=== PATIENT | female | born 1970 | race Caucasian/White ===

== ENCOUNTER 2021-04-11 13:32 | Emergency (ER) | payer OTHER ==
[2021-04-11] MEDS ORDERED: CHERRY SYRUP 10 ML UDC PO ONE (14:23)
[2021-04-11] MEDS ORDERED: DEXAMETHASONE 10 MG/ML VIAL PO STA (14:23)
[2021-04-11] MEDS ORDERED: KETOROLAC 60 MG/2 ML VIAL IM STA (14:28)
--- NOTE | 2021-04-11 14:30 | ED Physician Documentation ---
PD HPI BACK PAIN - Stated complaint Stated Complaint: LT SIDE BACK PX - Chief complaint Chief Complaint: Back Pain - History obtained from History obtained from: Patient, Family - History of Present Illness Timing - onset: How many months ago (9) Timing - duration: Months (9) Timing - details: Gradual onset, Still present, Waxing and waning Location: Upper, Mid Quality: Pain, Spasm, Sharp, Similar to prior episodes Associated symptoms: No: Fever, Weakness, Numbness, Incontinent of urine, Unable to urinate, Hematuria, Incontinent of stool Improves with: Rest, Position, Meds Worsened by: Movement Similar symptoms before: No diagnosis, Work up / diagnostics (has included MRI, CT and surgery) Recently seen: Not recently seen - Additional information Additional information: Previous well 50-year-old female has developed some pain in her upper back on the left side that radiates around to the front. She has had extensive work up t o include CT scan of the chest, MRI of the thoracic spine and surgery to a lipoma on the abdomen. There is a finding of a T7 disc bulge. Review of Systems Constitutional: denies: Fever Eyes: denies: Decreased vision Ears: denies: Ear pain Nose: denies: Congestion Throat: denies: Sore throat Cardiac: denies: Chest pain / pressure, Palpitations, Pedal edema, Calf pain Respiratory: denies: Dyspnea, Cough, Wheezing GI: denies: Abdominal Pain, Nausea, Vomiting, Constipation, Diarrhea : denies: Dysuria, Frequency Skin: denies: Rash Musculoskeletal: reports: Back pain. denies: Neck pain, Extremity pain Neurologic: denies: Generalized weakness, Focal weakness, Numbness PD PAST MEDICAL HISTORY - Present Medications Home Medications: Ambulatory Orders Medication Instructions Recorded Confirmed Cyclobenzaprine [Flexeril] 10 mg PO TID PRN #20 tablet 04/11/21 HYDROcod/ACETAM 5/325 [[place] 5/325] 1 - 2 tablet PO Q6H PRN #14 tablet 04/11/21 - Allergies Allergies/Adverse Reactions: Allergies Allergy/AdvReac Type Severity Reaction Status Date / Time No Known Drug Allergies Allergy Verified 04/11/21 13:48 PD ED PE NORMAL - Vitals Vital signs reviewed: Yes (hypertensive ) - General General: Alert and oriented X 3, No acute distress, Well developed/nourished - HEENT HEENT: Atraumatic, PERRL, EOMI - Neck Neck: Supple, no meningeal sign, No bony TTP - Cardiac Cardiac: RRR, No murmur - Respiratory Respiratory: No respiratory distress, Clear bilaterally, Other (no chest wall tenderness. 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, No motor deficit, No sensory deficit, Normal speech Eye Opening: Spontaneous Motor: Obeys Commands Verbal: Oriented GCS Score: 15 - Psych Psych: Normal mood, Normal affect Results - Vitals Vitals: Vital Signs - 24 hr 04/11/21 13:43 Temperature 36.7 C Heart Rate 84 Respiratory 18 Rate Blood Pressure 146/80 H O2 Saturation 100 PD MEDICAL DECISION MAKING - ED course Complexity details: reviewed old records, reviewed results, re-evaluated patient, considered differential, d/w patient ED course: 50-year-old female with 9 months of history of pain from her back that radiates around to the front and is intermittent and currently it is persistent. She has had a work-up to include MRI which does show a T7 disc bulge. She is in the process of getting insurance verification for her procedure of epidural steroid injection.She has taken some muscle relaxant in the past with help she has taken some pain medication periodically in the past with help she is about done with this pain.Here in the emergency department she is administered dexamethasone 10 mg orally she is given 60 mg of Toradol IM and we will place her on a short course of pain medication a muscle relaxant. Departure - Departure Disposition: 01 Home, Self Care Clinical Impression: Thoracic disc disease Condition: Stable Instructions: ED Sciatica Follow-Up: DAMION ALBERTO ARNP [Primary Care Provider] - Prescriptions: Cyclobenzaprine [Flexeril] 10 mg PO TID PRN #20 tablet PRN Reason: Spasms HYDROcod/ACETAM 5/325 [[place] 5/325] 1 - 2 tablet PO Q6H PRN #14 tablet PRN Reason: Pain
[2021-04-11 14:58] VITALS: BP 136/77
== END 2021-04-11 14:58 | disposition home or self-care (01) ==
LOC: ED 13:32
DX: M51.24 Other intervertebral disc displacement, thoracic region (principal)
CPT/HCPCS: 96372; 99283; 99284; A9270

== ENCOUNTER 2023-11-01 10:01 | Observation (INO) | payer OTHER ==
[2023-11-01 10:34] LABS: BASOPHILS % (AUTO) 0.3 %; EOSINOPHILS # (AUTO) 0.2 10^3/uL (0.0-0.7); EOSINOPHILS % (AUTO) 2.4 %; HCT - HEMATOCRIT 46.5 % (37.0-47.0); HGB - HEMOGLOBIN 15.7 g/dL (12.0-16.0); LYMPHOCYTES % (AUTO) 28.4 %; MEAN CORPUSCULAR HGB CONC 33.8 g/dL (32.0-36.0); MEAN CORPUSCULAR VOLUME 91.9 fL (81.0-99.0); MEAN PLATELET VOLUME 8.4 fL (7.9-10.8); MONOCYTES # (AUTO) 0.4 10^3/uL (0.0-1.0); MONOCYTES % (AUTO) 5.3 %; NEUTROPHILS # (AUTO) 4.5 10^3/uL (1.5-6.6); NEUTROPHILS % (AUTO) 63.5 %; PLT - PLATELET COUNT 376 10^3/uL (130-450); RED BLOOD COUNT 5.06 10^6/uL (4.20-5.40); RED CELL DISTRIBUTION WIDTH 11.9 % (12.0-15.0); WHITE BLOOD COUNT 7.1 x10^3/uL (4.8-10.8)
[2023-11-01 10:37] LABS: BILIRUBIN,URINE NEGATIVE (NEGATIVE); GLUCOSE, URINE (UA) NEGATIVE (NEGATIVE); KETONES,URINE (UA) TRACE mg/dL (NEGATIVE); LEUKOCYTE ESTERASE, URINE LARGE (NEGATIVE); NITRITE,URINE NEGATIVE (NEGATIVE); OCCULT BLOOD,URINE NEGATIVE (NEGATIVE); PROTEIN,URINE TRACE mg/dL (NEGATIVE); UROBILINOGEN,URINE 0.2 (NORMAL) E.U./dL (NORMAL)
[2023-11-01 10:43] LABS: CLARITY,URINE SL. CLOUDY (CLEAR); HCG UR QUAL NEGATIVE
[2023-11-01 10:44] LABS: AMORPHOUS SEDIMENT,UR Few /LPF; BACTERIA,URINE Few /HPF (None Seen); MUCUS,URINE Moderate Strands; RBC,URINE 0-5 /HPF (0-5); SQUAMOUS EPITHELIAL CELL,UR MOD Squamous (<= Few)
[2023-11-01 10:52] LABS: ALBUMIN 4.7 g/dL (3.2-5.5); ALBUMIN/GLOBULIN RATIO 1.6 (1.0-2.2); BILIRUBIN,TOTAL 0.6 mg/dL (0.2-1.0); CALCIUM 9.9 mg/dL (8.5-10.3); CREATININE 0.9 mg/dL (0.6-1.3); TOTAL PROTEIN 7.7 g/dL (6.4-8.9)
[2023-11-01] MEDS ORDERED: HYDROmorphone 1 MG/ML CARPUJECT IVP STA ×2 (11:22→14:40)
[2023-11-01] MEDS ORDERED: KETOROLAC 15 MG/ML VIAL IVP STA (11:22)
[2023-11-01] MEDS ORDERED: ONDANSETRON 4 MG/2 ML VIAL IVP STA ×2 (11:22→14:40)
[2023-11-01] MEDS ORDERED: SODIUM CHLORIDE 0.9% 1,000 ML IV STA ×2 (11:22→14:37)
[2023-11-01] MEDS ORDERED: iohexoL-300 100 ML VIAL ONE (11:25)
[2023-11-01] MEDS ORDERED: iohexoL-300 100 ML VIAL IVP ONE (11:47)
--- NOTE | 2023-11-01 11:58 | CT Report ---
PROCEDURE: Abdomen/Pelvis W INDICATIONS: LUQ pain for 2 days, worse CONTRAST: 100ml omni 300 TECHNIQUE: After the administration of intravenous contrast, a CT scan of the abdomen and pelvis was performed. Images were recorded and evaluated at appropriate window settings. Reformats: coronal and sagittal. F or radiation dose reduction, the following was used: automated exposure control, adjustment of mA and /or kV according to patient size. COMPARISON: None. FINDINGS: Image quality: Excellent. Lung bases and heart: Unremarkable. Liver: No solid mass. Gallbladder and biliary tree: Removed. Spleen: No splenomegaly. Pancreas: No pancreatic ductal dilation. Adrenals: No adrenal nodule. Kidneys and ureters: No hydronephrosis. No renal cystic lesion which requires follow up. No solid mas s. Bowel and peritoneum: Scattered mildly prominent loops of fluid-filled small bowel largest measuring approximately 2.8 cm. Transition point is suspected to be in the right lower quadrant. Moderate colon ic stool is present. Lymph nodes: No central or retroperitoneal adenopathy. Vessels: No infrarenal aortic aneurysm. PELVIS Reproductive organs: Unremarkable. Bladder: No abnormal wall thickening, accounting for underdistention. Pelvic lymph nodes: No pelvic adenopathy by size criteria. Bones: No aggressive osseous abnormality. Other: No significant ventral or inguinal hernia. IMPRESSION: Mildly prominent fluid-filled loops of small bowel as described above. This may represent ileus versu s developing partial small bowel obstruction. Moderate colonic stool. Reviewed by: Paola Cooper MD on 11/01/2023 11:56 AM PST Approved by: Paola Cooper MD on 11/01/2023 11:56 AM PST Station ID: [id number]
[2023-11-01] MEDS ORDERED: cefTRIAXone 1 GM VIAL IVP STA (13:42)
--- NOTE | 2023-11-01 14:00 | ED Physician Documentation ---
PD HPI ABD PAIN - Stated complaint Stated Complaint: ABD PX - Chief complaint Chief Complaint: Abd Pain - History obtained from History obtained from: Patient - History of Present Illness Timing - onset: How many days ago (2) Timing - duration: Days (2) Timing - details: Gradual onset, Still present Quality: Cramping, Aching, Pain Location: Epigastric, LUQ Associated symptoms: Nausea, Vomiting (couple of times.). No: Fever, Diarrhea (loose stools twice. Not watery.), Constipation Similar symptoms before: Diagnosis (clinical diagnosis of diverticulitis about 8 months ago, treted empirically and improved readily.) Recently seen: Not recently seen Review of Systems Constitutional: denies: Fever, Chills, Myalgias Cardiac: denies: Chest pain / pressure Respiratory: denies: Dyspnea GI: reports: Abdominal Pain, Nausea (having foul smelling/tasting large burps the past day.). denies: Vomiting, Diarrhea (small but not watery stool overnight. 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: section - Present Medications Home Medications: Ambulatory Orders Medication Instructions Recorded Confirmed Gabapentin [Neurontin] 600 mg PO HS 11/01/23 11/01/23 amLODIPine [Norvasc] 5 mg PO DAILY 11/01/23 11/01/23 - Allergies Allergies/Adverse Reactions: Allergies Allergy/AdvReac Type Severity Reaction Status Date / Time No Known Drug Allergies Allergy Verified 11/01/23 10:19 - Social History Does the pt smoke?: No Smoking Status: Never smoker Does the pt drink ETOH?: No Does the pt have substance abuse?: No - Immunizations Immunizations are current?: Yes - POLST Patient has POLST: No PD ED PE NORMAL - Vitals Vital signs reviewed: Yes - General General: Alert and oriented X 3, Well developed/nourished, Other (does appear uncomfortable in pain of abdomen. ) - Neck Neck: Supple, no meningeal sign, No adenopathy - Cardiac Cardiac: No murmur. No: RRR (regula but tachycardic) - Respiratory Respiratory: Clear bilaterally - Abdomen Abdomen: No organomegaly, Other (Tender with palpation and percussion LUQ, with some distended abdomen and decreased bowel sounds. ). No: Normal bowel sounds (decreased) - Female Female : Deferred - Rectal Rectal: Deferred - Back Back: No CVA TTP - Derm Derm: Normal color, Warm and dry - Extremities Extremities: No edema, No calf tenderness / cord - Neuro Neuro: Alert and oriented X 3, No motor deficit, Normal speech Results - Vitals Vitals: Vital Signs - 24 hr 11/01/23 11/01/23 11/01/23 10:15 12:19 14:00 Temperature 36.8 C Heart Rate 103 H 80 82 Respiratory 20 20 20 Rate Blood Pressure 167/102 H 138/82 H 133/84 H O2 Saturation 99 98 99 Oxygen O2 Source Room air - Labs Labs: Laboratory Tests 11/01/23 11/01/23 11/01/23 10:28 10:28 10:28 WBC 7.1 RBC 5.06 Hgb 15.7 Hct 46.5 MCV 91.9 MCH 31.0 MCHC 33.8 RDW 11.9 L Plt Count 376 MPV 8.4 Neut # (Auto) 4.5 Lymph # (Auto) 2.0 [place] # (Auto) 0.4 Eos # (Auto) 0.2 Baso # (Auto) 0.0 Absolute Nucleated RBC 0.00 Nucleated RBC % 0.0 Sodium 137 Potassium 4.0 Chloride 103 Carbon Dioxide 27 Anion Gap 7.0 BUN 14 Creatinine 0.9 Estimated GFR (MDRD) 66 L Glucose 92 Calcium 9.9 Total Bilirubin 0.6 AST 15 ALT 17 Alkaline Phosphatase 52 Total Protein 7.7 Albumin 4.7 Globulin 3.0 Albumin/Globulin Ratio 1.6 Lipase 18 Urine Color YELLOW Urine Clarity SL. CLOUDY Urine pH 6.0 Ur Specific [place] 1.020 Urine Protein TRACE Urine Glucose (UA) NEGATIVE Urine Ketones TRACE Urine Occult Blood NEGATIVE Urine Nitrite NEGATIVE Urine Bilirubin NEGATIVE Urine Urobilinogen 0.2 (NORMAL) Ur Leukocyte Esterase LARGE H Urine RBC 0-5 Urine WBC 6-10 H Ur Squamous Epith Cells MOD Squamous H Amorphous Sediment Few Urine Bacteria Few Urine Mucus Moderate Strands Ur Microscopic Review INDICATED Urine Culture Comments NOT INDICATED Urine HCG, Qual NEGATIVE - Rads (name of study) abd/pelvic CT Relevant Findings:: Prelim report reviewed, EMP independent interpretation of test (fluid distended small bowel loops, with stool distal. Transition possibly LUQ with area of inflammation of intestine to my view. (Radiology questions transition RLQ but otherwise similar ileus vs early SBO).) PD Medical Decision Making - ED course Complexity details: reviewed results (normal WBC and LFTs/lipase. Basic chemistry without acute abnormalities. ), re-evaluated patient (Still with some disteded abd and feeling nauseated but pain is moderated. Subsequently did have reprise of both symptoms and additona meds given. ), considered differential (left upper abd pain gradually and worsening over 12-24 hours. Nausea and fullness. Has minimal stools out. Distended abd. ), d/w patient, d/w [employer] application consultant (Hospitalist - regarding persisitent symptoms with repeat doses of meds in setting of likely colitis with ileus. ) ED course: She is having pain in the left upper quadrant which she states was similar to her clinical diagnosis of diverticulitis about a months ago. It did improve with a treatment geared towards that. Likely a reasonable diagnosis at the [facility]. Has been doing okay in the interim. Now with similar symptoms but much worse and associated with abdominal fullness, nausea, couple of episodes of vomiting last night. She still had minimal stool output this morning and passing flatus so unlikely obstruction completely. She does have a distended abdomen with decreased bowel sounds. Given the degree of symptoms and promptness of their onset over just half to 1 day, it did seem reasonable to investigate further with labs and CT scan. Shared decision with the patient was to go ahead with the CT scan. The scan showed what appeared to be either a early bowel obstruction versus ileus with air-fluid levels through the small intestine. I thought I saw an inflammation area up by the transverse colon and left upper with some fluid behind and stools distal. Radiology report was possible transition in the right lower. This could still represent a an ascending and transverse colon process. The picture does not sound ischemic and does not look like a mechanical small bowel obstruction. Clinically it acts more like diverticulitis and colitis with a ileus versus pseudoobstruction. No history of Crohn's nor inflammatory bowel disease. I do not see it being a surgical indication at this point. I talked with the hospitalist who is in agreement to have the patient in the hospital given that she has had fluids as well as 3 doses of pain medicine and 2 of antiemetics with still poor oral intake feeling cramping with just sips of fluids. Departure - Departure Disposition: ED Place in Observation Clinical Impression: Colitis, Ileus due to infection, Intractable nausea and vomiting Abdominal pain Qualifiers: Abdominal location: left upper quadrant Qualified Code(s): R10.12 - Left upper quadrant pain Condition: Stable Record reviewed to determine appropriate education?: Yes Forms: PCP List
[2023-11-01] MEDS ORDERED: ONDANSETRON 4 MG/2 ML VIAL IVP PRN (16:24)
[2023-11-01] MEDS ORDERED: ACETAMINOPHEN 325 MG TABLET PO PRN (16:24)
[2023-11-01] MEDS ORDERED: SODIUM CHLORIDE FLUSH 0.9% 10 ML SYRINGE IVP PRN (16:24)
[2023-11-01] MEDS ORDERED: PROCHLORPERAZINE 10 MG/2 ML VIAL IVP PRN (16:24)
--- NOTE | 2023-11-01 16:33 | HISTORY & PHYSICAL EXAMINATION ---
Chief Complaint - Chief Complaint Chief Complaint: Abd pain, N/V/D History of Present Illness - Admitted From Admitted From:: ED - History Obtained From History obtained from: ED provider and the patient - History of Present Illness HPI Comment/Other: This is a 53-year-old female with a history of HTN and diverticulitis 8 months ago for which she was treated with oral antibiotics by her doctor. She presented to the ED complaining of 2 days of similar diffuse abdominal pain, worse in the left upper quadrant, along with nausea and vomiting, burping up regurgitated food that tasted necrotic and loose BMs that started yesterday. Her workup in the ER showed normal electrolytes and normal CBC, CT scan was read as having an ileus or early small bowel obstruction. There is possibly inflammation and a transition point in the transverse colon according to the ED provider, or in the right lower abdomen according to the Radiology reading. Patient was given antiemetics but still had further nausea. She also received IV fluids, IV Flagyl and IV Rocephin empirically. The ED provider then spoke to me about this patient. She will be placed in Observation status to further manage her symptoms. 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 Social History Notes: Neg smoking, minimal EtOH - Substance History Use: Uses substance without health or social issues: NONE - POLST Patient has POLST: No Meds/Allgy - Home Medications Home Medications: Ambulatory Orders Medication Instructions Recorded Confirmed Gabapentin [Neurontin] 600 mg PO HS 11/01/23 11/01/23 amLODIPine [Norvasc] 5 mg PO DAILY 11/01/23 11/01/23 - Allergies Allergies/Adverse Reactions: Allergies Allergy/AdvReac Type Severity Reaction Status Date / Time No Known Drug Allergies Allergy Verified 11/01/23 10:19 Review of Systems - Gastrointestinal Gastrointestinal: reports: Nausea, Vomiting, Other (4 mos ago she started a strict diet and has lost 35 lbs) - All Other Systems All Other Systems: reports: Reviewed and negative Exam - Vital Signs Vital Signs: Vital Signs x48h Temp Pulse Resp BP Pulse Ox 11/01/23 16:00 79 20 125/92 H 94 11/01/23 14:00 82 20 133/84 H 99 11/01/23 12:19 80 20 138/82 H 98 11/01/23 10:15 36.8 C 103 H 20 167/102 H 99 - Physical Exam General Appearance: positive: No acute distress (after pain meds), Alert Eyes Bilateral: positive: Normal inspection, EOMI ENT: positive: ENT inspection nml, No signs of dehydration Neck: positive: Nml inspection, No JVD Respiratory: positive: No respiratory distress, Breath sounds nml Cardiovascular: positive: Regular rate & rhythm, Systolic murmur (10/11 over aorta) Abdomen: positive: Other (Obese, soft, tender to deep palp in LUQ, no guarding or rebound, normal tympany) Skin: positive: Warm, Dry Extremities: positive: Non-tender, No pedal edema Neurologic/Psychiatric: positive: Oriented x3, CN's nml (2-12), Motor nml Conclusion/Plan - Problem List (1) Ileus due to infection Conclusion/Plan: It appears that she has a partial small bowel obstruction or colitis with an il eus. Her bowel sounds are not hyperactive and diarrhea was not her biggest complaint, it is abd pain. Plan: Will place in Observation status to cont to manage Continue with IV antiemetics, IV pain meds Continue IV fluids, using empiric iv Flagyl and iv Cipro Continue empiric IV antibiotics Consider general surgery consult if her clinical status worsens (2) Intractable nausea and vomiting Conclusion/Plan: Plan: Bowel rest by just giving sips and chips today and will try advancing to clear liquids tomorrow IV antiemetics IV fluids (3) HTN (hypertension) Conclusion/Plan: Plan: Will continue her usual BP meds unless she has a low BP or unless she throws up her meds, then will use IV antihypertensives - Lab Results Fish Bones: 11/01/23 10:28 11/01/23 10:28
[2023-11-01] MEDS: D5NS W/20 MEQ KCL 1,000 ML IV SCH (17:13)
[2023-11-01] MEDS: SODIUM CHLORIDE FLUSH 0.9% 10 ML SYRINGE IVP SCH ×2 (17:15→23:29)
[2023-11-01] MEDS ORDERED: KETOROLAC 15 MG/ML VIAL IVP PRN (19:00)
[2023-11-01] MEDS: CIPROFLOXACIN 400 MG/200 ML 400 MG/200 ML BAG IV SCH (19:41)
[2023-11-01] MEDS: HYDROmorphone 1 MG/ML CARPUJECT IVP PRN (19:41)
[2023-11-01] MEDS: metroNIDAZOLE 500 MG/100 ML 500 MG/100 ML BAG IV SCH (21:00)
[2023-11-01] MEDS ORDERED: GABAPENTIN 300 MG CAPSULE PO SCH (21:00)
[2023-11-02] MEDS: HYDROmorphone 1 MG/ML CARPUJECT IVP PRN ×3 (00:10→13:47)
[2023-11-02] MEDS: metroNIDAZOLE 500 MG/100 ML 500 MG/100 ML BAG IV SCH ×2 (05:08→12:11)
[2023-11-02] MEDS: D5NS W/20 MEQ KCL 1,000 ML IV SCH (08:25)
[2023-11-02] MEDS ORDERED: amLODIPine 5 MG TABLET PO SCH (09:00)
[2023-11-02] MEDS: CIPROFLOXACIN 400 MG/200 ML 400 MG/200 ML BAG IV SCH (09:05)
[2023-11-02] MEDS: SODIUM CHLORIDE FLUSH 0.9% 10 ML SYRINGE IVP SCH (09:08)
[2023-11-02] MEDS ORDERED: D5NS W/20 MEQ KCL 1,000 ML IV SCH (09:20)
[2023-11-02] MEDS ORDERED: IBUPROFEN 600 MG TABLET PO PRN (09:25)
[2023-11-02 09:51] LABS: BASOPHILS % (AUTO) 0.2 %; EOSINOPHILS # (AUTO) 0.3 10^3/uL (0.0-0.7); EOSINOPHILS % (AUTO) 6.9 %; HCT - HEMATOCRIT 40.3 % (37.0-47.0); HGB - HEMOGLOBIN 13.6 g/dL (12.0-16.0); LYMPHOCYTES # (AUTO) 1.3 10^3/uL (1.5-3.5); LYMPHOCYTES % (AUTO) 30.5 %; MEAN CORPUSCULAR HEMOGLOBIN 31.7 pg (27.0-31.0); MEAN CORPUSCULAR HGB CONC 33.7 g/dL (32.0-36.0); MEAN CORPUSCULAR VOLUME 93.9 fL (81.0-99.0); MEAN PLATELET VOLUME 8.5 fL (7.9-10.8); MONOCYTES # (AUTO) 0.3 10^3/uL (0.0-1.0); MONOCYTES % (AUTO) 6.4 %; NEUTROPHILS # (AUTO) 2.3 10^3/uL (1.5-6.6); NEUTROPHILS % (AUTO) 55.5 %; PLT - PLATELET COUNT 288 10^3/uL (130-450); RED BLOOD COUNT 4.29 10^6/uL (4.20-5.40); WHITE BLOOD COUNT 4.2 x10^3/uL (4.8-10.8)
[2023-11-02 10:05] LABS: CALCIUM 8.5 mg/dL (8.5-10.3); CREATININE 0.7 mg/dL (0.6-1.3); MAGNESIUM 1.8 mg/dL (1.7-2.3); POTASSIUM 3.9 mmol/L (3.5-4.5)
--- NOTE | 2023-11-02 14:57 | Discharge Plan ---
Discharge Plan Problem Reviewed?: Yes Disposition: Home, Self Care Condition: Fair Prescriptions: Ibuprofen [Motrin] 600 mg PO Q6HR PRN #28 tab PRN Reason: Moderate Pain (Level 4-6) Ciprofloxacin HCl [Cipro] 500 mg PO BID 7 Days #14 tablet HYDROmorphone [Dilaudid] 2 mg PO Q12H PRN #4 tablet PRN Reason: Severe Pain (Level 7-10) metroNIDAZOLE [Flagyl] 500 mg PO TID 7 Days #21 tablet ONDANSETRON ODT Prepack 2 [ZOFRAN ODT Prepack 2] 4 mg TL Q6H PRN #10 tablet PRN Reason: Nausea / Vomiting Diet: Soft Activity Restrictions: Activity as Tolerated Shower Restrictions: No Driving Restrictions: No Instruction Topics: Diverticulitis Dc Health Concerns: You were hospitalized to treat your abdominal pain which was caused by diverticulitis/colitis. You received IV fluids, a diet that is easy to digest, pain medicine, nausea medicine and you have improved. You are being discharged home today. I have prescribed for you a 1 week course of oral antibiotics (Cipro and Flagyl) to treat this diverticulitis, and also anti-nausea medicine (Zofran) and pain medicines (Tylenol, Motrin, and Dilaudid pills) for you to use at home. The new prescriptions were sent to your [facility] pharmacy in [place]. Remember to stay well-hydrated. If you should feel worse, or get a fever despite being on antibiotics, do not hesitate to come back to the Emergency Room. If you measure your blood pressure at home, and if it is high, then you may take your usual blood pressure pills. If your blood pressure is below 110 (on the top number), do not take your blood pressure medicines that day. You should see your Primary Care Provider in the next 7 to 10 days for hospital follow-up visit. Plan of Treatment: As above. Care Goals: Improvement in symptoms and stabilization are the goals. Assessment: The patient understands the plan. No Smoking: If you smoke, Please STOP! Call for help.
[2023-11-02] MEDS ORDERED: HYDROmorphone 2 MG TABLET PO STA (15:12)
--- NOTE | 2023-11-02 15:27 | DISCHARGE SUMMARY ---
Discharge Summary Admit Date: 11/01/23 Discharge Date: 11/02/23 Discharging Provider: Dr Clara Garduno Condition at Discharge: Fair Discharge Disposition: 01 Home, Self Care - HPI History of Present Illness: This is a 53-year-old female with a history of HTN and diverticulitis 8 months ago for which she was treated with oral antibiotics by her doctor. She presented to the ED complaining of 2 days of similar diffuse abdominal pain, worse in the left upper quadrant, along with nausea and vomiting, burping up regurgitated food that tasted necrotic and loose BMs that started yesterday. Her workup in the ER showed normal electrolytes and normal CBC, CT scan was read as having an ileus or early small bowel obstruction. There is possibly inflammation and a transition point in the transverse colon according to the ED provider, or in the right lower abdomen according to the Radiology reading. Patient was given antiemetics but still had further nausea. She also received IV fluids, IV Flagyl and IV Rocephin empirically. The ED provider then spoke to me about this patient. She will be placed in Observation status to further manage her symptoms. - HOSPITAL COURSE Hospital Course: (1) Colitis By CT imaging she had colitis possibly with an ileus. Her biggest complaint was abdominal pain. She was placed in Observation status to cont to give iv fluids, prn IV antiemetics, prn IV pain meds and we continued her on empiric iv Flagyl and iv Cipro. She had a diet of ice chips, then the next morning was started on clear liquids and was able to tolerate 100% of that meal. By lunch, she was able to tolerate 100% of her minced and moist diet, therefore she was discharged home by that next day. She was prescribed a week of oral Cipro and Flagyl and given a prescription for Dilaudid 1 mg tablets, and advised to also take Motrin as needed and Tylenol as needed. Staying well hydrated and continuing a soft diet where advised. (2) Intractable nausea and vomiting Bowel rest then advancing her diet was tolerated. She was prescribed Zofran trans lingual as needed for nausea at discharge. (3) HTN (hypertension) We continued her usual BP meds. - ALLERGIES Allergies/Adverse Reactions: Allergies Allergy/AdvReac Type Severity Reaction Status Date / Time No Known Drug Allergies Allergy Verified 11/01/23 10:19 - MEDICATIONS Home Medications: Ambulatory Orders Medication Instructions Recorded Confirmed Gabapentin [Neurontin] 600 mg PO HS 11/01/23 11/01/23 amLODIPine [Norvasc] 5 mg PO DAILY 11/01/23 11/01/23 Acetaminophen [Tylenol] 650 mg PO Q4HR PRN tab 11/02/23 Ciprofloxacin HCl [Cipro] 500 mg PO BID 7 Days #14 tablet 11/02/23 HYDROmorphone [Dilaudid] 2 mg PO Q12H PRN #4 tablet 11/02/23 Ibuprofen [Motrin] 600 mg PO Q6HR PRN #28 tab 11/02/23 ONDANSETRON ODT Prepack 2 [ZOFRAN 4 mg TL Q6H PRN #10 tablet 11/02/23 ODT Prepack 2] metroNIDAZOLE [Flagyl] 500 mg PO TID 7 Days #21 tablet 11/02/23 - PHYSICAL EXAM AT DISCHARGE General Appearance: positive: No acute distress, Alert, Other (Obese (BMI 41)) Eyes Bilateral: positive: Normal inspection, EOMI ENT: positive: ENT inspection nml, No signs of dehydration Neck: positive: Nml inspection, No JVD Respiratory: positive: No respiratory distress, Breath sounds nml Cardiovascular: positive: Regular rate & rhythm, No murmur Abdomen: positive: No organomegaly, Nml bowel sounds, No distention, Other (Mil dly tender in LUQ, no guarding or rebound.) Skin: positive: Warm, Dry Extremities: positive: Non-tender, No pedal edema Neurologic/Psychiatric: positive: Oriented x3, CN's nml (2-12), Motor nml - LABS Result Diagrams: 11/02/23 09:45 11/02/23 09:45 - DIAGNOSTIC IMAGING Diagnostic Imaging Results: Final report reviewed - FOLLOW UP Follow Up: See PCP in 1-2 weeks for a hospital follow-up visit. - TIME SPENT Time Spent in Discharge (Minutes): 25
[2023-11-02 16:24] VITALS: BP 134/96; O2SAT 95
== END 2023-11-02 16:00 | disposition home or self-care (01) ==
LOC: ED 10:01 → MS3 16:24
PROVIDERS: ADMIT Internal Medicine; ATTEND Internal Medicine
DX: K52.9 Noninfective gastroenteritis and colitis, unspecified (principal); I10 Essential (primary) hypertension; Z87.19 Personal history of other diseases of the digestive system; K21.9 Gastro-esophageal reflux disease without esophagitis
CPT/HCPCS: 36415; 74177; 80048; 80053; 81001; 81025; 83690; 83735; 85025; 96361; 96365; 96366; 96367; 96375; 96376; 99285; A9270; G0378; J1170; Q9967; 81003; 87086

== ENCOUNTER 2024-02-19 08:47 | Outpatient (CLI) | payer OTHER ==
--- NOTE | 2024-02-19 09:17 | Sleep Patient Instructions ---
Sleep Center Visit Summary - Patient Visit Information Reason for Visit: Initial consult for evaluation of sleep disordered breathing and other sleep issues. - Patient Instructions Instructions Attached: Sleep Study, Sleep Study Home Monitor Additional Instructions: You will be completing a sleep study, either an in-lab polysomnography (PSG) or home sleep study (HST). You will follow-up in the sleep care office after the sleep study is completed to hear the results and talk about therapy, if needed. You will be called by our office staff to schedule this appointment, but you may contact us with any questions. - Clinic Information Contact: [facility] [address] [place] [id number] [email or web address] T: [phone]
--- NOTE | 2024-02-19 09:20 | SLEEP CARE CONSULTATION ---
Information from patient questionnaire entered by John Kinney. I have reviewed and concur with the information entered by John Kinney. This document represents the service I personally performed and the decisions made by me, Leah Humphrey ARNP. History of Present Illness Service Date and Time: 02/19/2024 0847 Reason for Visit: New patient Chief Complaint: reports: Snoring, Observed pauses in breathing Date of Onset: YRS Usual bedtime: 9620-3031 Time it takes to fall asleep: 60MINS Snores at night: Yes Observed to quit breathing while asleep: Yes Number of times waking at night: 3-4 Reasons for waking at night: reports: Snoring, Pain, Bathroom. denies: Choking, Gasping for air Toss, Turn, or Twitch while sleeping: Yes Recalls having dreams: Yes Usually gets out of bed at: 5397-3280 Feels refreshed in the morning: No Morning headache: No Sleepy or fatigued during the day: Yes Ever fallen asleep while driving: No Takes day naps: No Dreams during day naps: No Prior sleep studies: No Additional HPI information: I had the pleasure of seeing LAUREN HONEYCUTT today regarding the possibility of her having a sleep disorder. Her current complaints are snoring, observed pauses in breathing and unrefreshed sleep. She says it is hard to stay asleep at night. She feels she wakes up about 5 times a night for unknown reasons. She does not feel rested in the morning when she gets up. She says her energy fluctuates during the day but she rarely takes a nap. She has a sibling with sleep apnea who is on a PAP machine. 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 Patient is Single and lives in . Have you smoked in the past 12 months: No Alcohol use: Yes Alcohol amount and frequency: one glass of wine a month, rarely Caffeine use: Yes Caffeine amount and frequency: 1 A DAY Family History Family history of sleep disordered breathing: Yes Family Hx Sleep Apnea: Sibling: Snoring, Sleep apnea - Treated Allergies and Home Medications Known drug allergies: No Drug allergies reviewed: Yes Home medication list reviewed: Yes (as listed) Allergy and home medication list: Allergies No Known Drug Allergies Allergy Home Medications Medication Instructions Recorded Confirmed Last Taken Type Gabapentin [Neurontin] 600 mg PO HS 11/01/23 02/19/24 Unknown History amLODIPine [Norvasc] 5 mg PO DAILY 11/01/23 02/19/24 Unknown History Cyclobenzaprine [Flexeril] See Rx Instructions .ROUTE .COMPLEX 02/19/24 02/19/24 Unknown History Mecobalamin [B12 Active] See Rx Instructions .ROUTE .COMPLEX 02/19/24 02/19/24 Unknown History Meloxicam See Rx Instructions .ROUTE .COMPLEX 02/19/24 02/19/24 Unknown History Multivit-Min/Iron/Folic/Lutein See Rx Instructions .ROUTE .COMPLEX 02/19/24 02/19/24 Unknown History [Multivitamin Women 50 Plus Tab] Review of Systems Weight loss over past 5 years: 50 in last 6 month, little sugar/low carb diet Cardiovascular: reports: high blood pressure, leg or foot swelling Gastrointestinal: denies: heartburn Neurological: denies: headaches Psychiatric: denies: anxiety, depression Ear/Nose/Throat: reports: wisdom teeth removed. denies: tonsillectomy Endocrine: reports: excessive thirst Musculoskeletal: reports: back pain Immunologic: reports: allergies to food or environment (sometimes pollen but not always) Physical Exam Vital signs obtained and entered by: JOHN Doyle MA Blood Pressure: 150/96 (LEFT ARM) Cuff size: long Heart Rate: 81 O2 Saturation: 99 Height: 5 ft 3.75 in Weight: 226 lb 12.8 oz Body Mass Index: 39.2 BMI Classification: Obese Neck circumference: 18.5 Nostrils: patent to airflow Mouth and throat: narrow oropharynx Soft palate: long Hard palate: normal Uvula: normal Uvula visualization: 25% Mallampati Class III Tongue: enlarged in size with teeth nava on lateral edges Tonsils: small Neck: normal w/o lymphadenopathy or thyromegaly Heart: regular rate and rhythm Lungs: clear bilaterally Impression and Plan 1. Suspected Obstructive Sleep Apnea-Hypopnea Syndrome, as suggested by a history of loud and irregular snoring, observed cessation of breath while as leep, frequent awakening during the night, unrefreshed sleep, and excessive daytime sleepiness. Narrow oropharynx and obesity are common predisposing factors for obstructive sleep apnea-hypopnea syndrome. I recommend proceeding to polysomnography to confirm the diagnosis and to assess severity. If the patient has significant sleep disordered breathing, a manual CPAP titration study will also be performed to find the optimal treatment pressure. I informed the patient of what the sleep studies involve and after some discussion, obtained agreement to proceed. The pathophysiology of obstructive sleep apnea- hypopnea syndrome was discussed with the patient and health risks of cardiovascular and cerebrovascular disease if not treated. Risks of drowsy driving discussed in detail and patient advised to avoid long distance driving and to press puller at the first sign of drowsiness. Patient agreed to plan. * Schedule polysomnography. * Avoid long distance driving or driving when feeling sleepy. * Avoid alcohol, sedative and muscle relaxant around bedtime. * Attempt to lose weight. * Review instructions provided by trained office staff on how to prepare for the sleep study. * Return for follow-up after sleep study completed. Counseling Topics: Weight loss health impact Plan: PSG/HST and followup Visit Type: In Office Time Spent with Patient (minutes): 23 Provider Statement: I spent 100% of the Face to Face Visit with the patient with greater than 50% spent counseling the patient and coordination of care.
[2024-02-19 09:29] VITALS: BP 150/96; O2SAT 99
== END 2024-02-19 08:48 | disposition home or self-care (01) ==
LOC: SC 08:47
PROVIDERS: ATTEND Nurse Practitioner Family
DX: R06.81 Apnea, not elsewhere classified (principal); G47.8 Other sleep disorders; G47.10 Hypersomnia, unspecified; R06.83 Snoring; E66.9 Obesity, unspecified; Z68.39 Body mass index [BMI] 39.0-39.9, adult
CPT/HCPCS: 99202; 99212